=== PATIENT | female | born 1945 | race Two or more races ===

== ENCOUNTER 2019-04-20 11:50 | Emergency (ER) | payer MEDICAID, SELFPAY ==
--- NOTE | ~2019-04-20 | CT_ITS ---
EXAMINATION: CT brain wo con DATE: 04/20/2019 18:23 INDICATION: Dizziness TECHNIQUE: Computed tomography (CT) of the head was performed without intravenous contrast. Sagittal and coronal reconstructions were performed. The mA was adjusted according to patient size. Iterative reconstruction technique was employed. The dose-length product was 605.33 mGy-cm. COMPARISON: None FINDINGS: No acute intracranial hemorrhage, acute infarction or abnormal extra axial fluid collection. Ventricl es are normal and symmetric. No mass/mass effect. There is mild scattered white matter hypoattenuatio n consistent with chronic small vessel ischemic disease. Changes of bilateral intraocular lens replac ement. The orbits and mastoid air cells are normal. Opacification of the dependent half of the right sphenoid sinus consistent with likely combination of mucus and mucosal thickening. There are numerou s small lytic calvarial lesions along with 4 sclerotic calvarial lesions. IMPRESSION: 1. Mild scattered white matter hypoattenuation consistent with chronic small vessel ischemic disease. No acute intracranial process. 2. Multiple scattered small lytic calvarial lesions and 4 sclerotic calvarial lesions. Differential i ncludes metastatic disease, multiple myeloma, Paget's disease and spotty osteopenia with benign bone islands. Consider further evaluation with bone scan and SPEP/UPEP levels. Reviewed, dictated and finalized at location A. ER/WAITRESS INFORMAL IMPRESSION: 1. Mild scattered white matter hypoattenuation consistent with chronic small ve ssel ischemic disease. No acute intracranial process. 2. Multiple scattered small lytic calvarial lesions and 4 sclerotic calvarial l esions. Differential includes metastatic disease, multiple myeloma, Paget's dis ease and spotty osteopenia with benign bone islands. Consider further evaluatio n with bone scan and SPEP/UPEP levels.
--- NOTE | ~2019-04-20 | CT_ITS ---
EXAMINATION: CT abdomen pelvis w con EXAM DATE: 04/20/2019 14:34 INDICATION: Epigastric pain, nausea vomiting and diarrhea. Dizziness. TECHNIQUE: Spiral CT of the abdomen and pelvis was performed following intravenous injection of 100 m L Omnipaque 350. Axial, coronal and sagittal images were reviewed. The dose-length product (DLP) fo r this examination was 331.81 mGy-cm. The exposure was tailored according to patient size (auto mA e xposure control), and iterative reconstruction (ASIR) was used as additional dose reduction technique . There is no prior study for comparison. FINDINGS: The liver, spleen, adrenal glands and pancreas are unremarkable. There is focal region of gallbladder fundal wall thickening up to 4 mm, about 13 mm in diameter without any soft tissue projec tion into the gallbladder lumen. Could be adenomyomatosis but Follow-up CT or ultrasound recommended in 6 months to confirm stability. Portal and splenic veins are patent. Kidneys enhance symmetrically . There is no hydronephrosis. The uterus is unremarkable. The bladder is unremarkable. Soft tis brent nodule in right lower aspect of pelvis, could be obturator lymph node measuring about 1.0 x 1.1 c m. There is mild scattered arteriosclerotic disease. The appendix is normal. The stomach and small bowel are unremarkable. There is expected amount of c olonic stool. No free intraperitoneal gas. The heart is normal in size. There are no pericardial or pleural effusions. The lung bases are unremarkable. There are no osteoblastic or osteolytic les ions identified. IMPRESSION: 1. Small focal region gallbladder fundal smooth wall thickening, could be adenomyomatosis. 2. Small nodule soft tissue could be borderline sized right obturator lymph node. 3. No acute intra-abdominal findings. 4. Consider follow-up CT abdomen and pelvis in 6 months. Reviewed, dictated and finalized at location A. [employer] IMPRESSION: 1. Small focal region gallbladder fundal smooth wall thickening, could be renetta omyomatosis. 2. Small nodule soft tissue could be borderline sized right obturator lymph no de. 3. No acute intra-abdominal findings. 4. Consider follow-up CT abdomen and pelvis in 6 months.
[2019-04-20 11:55] VITALS: BP 180/83; PULSE 77; RESP 16; TEMP 37.1; O2SAT 98
[2019-04-20 12:27] LABS: Basophils Absolute Auto 0.1 K/mm3 (0.0-0.1); Basophils Percent Auto 0.6 % (0.2-1.2); Eosinophils Percent Auto 0.1 % (0-4.4); Hematocrit 40.5 % (37.0-47.0); Hemoglobin 13.4 g/dL (12.0-15.0); Immature Granulocyte Absolute 0.05 K/mm3 (0.00-0.031); Immature Granulocyte Percent A 0.6 % (0-0.5); Lymphocytes Absolute Auto 1.17 K/mm3 (0.9-3.2); Lymphocytes Percent Auto 14.4 % (18.3-44.2); Mean Corpuscular HGB Conc 33.1 g/dl (32-36); Mean Corpuscular Hemoglobin 28.9 pg (26-34); Mean Corpuscular Volume 87.5 fl (80-100); Mean Platelet Volume 10.3 fl (7.4-10.4); Monocytes Absolute Auto 0.4 K/mm3 (0.1-0.6); Monocytes Percent Auto 4.8 % (2.6-8.5); Neutrophils Absolute Auto 6.5 K/mm3 (1.3-6.7); Neutrophils Percent Auto 79.5 % (45.5-73.1); Platelet Count Result 251 k/mm3 (150-375); Red Blood Count 4.63 M/mm3 (4.2-5.4); Red Cell Distribution Width 12.5 % (11.5-14.5); White Blood Count 8.2 K/mm3 (4.5-10.0)
[2019-04-20 12:41] LABS: Alanine Aminotransferase 35 U/L (4-35); Albumin Level 4.8 g/dL (3.5-5.1); Alkaline Phosphatase 82 U/L (38-126); Aspartate Amino Transferase 34 U/L (14-36); Bilirubin,Total 0.5 mg/dL (0.2-1.3); Blood Urea Nitrogen 14 mg/dL (7-17); Calcium 9.7 mg/dL (8.4-10.2); Carbon Dioxide 26 mmol/L (22-30); Chloride 102 mmol/L (98-107); Estimated CRCL calculation 70 ml/min; Estimated Glomerular Filt Rate > 60; Glucose 141 mg/dL (65-105); Lipase 54 U/L (23-300); Potassium 3.8 mmol/L (3.4-5.0); Sodium 139 mmol/L (137-145)
--- NOTE | 2019-04-20 13:21 | ED.NAVMDI ---
HPI - Nausea/Vomiting/Diarrhea General Chief complaint: Nausea/Vomiting/Diarrhea Stated complaint: vomiting, nausea, dizzy, headache Time Seen by Provider: 04/20/19 13:18 Source: topology professor (daughter at bedside) Mode of arrival: ambulatory Limitations: language barrier and other (poor historian) History of Present Illness HPI Narrative: A 73 y/o female pt presents to the ED, with c/o N/V since last night at 2200. Pt's family translating at bedside states that, pt has been vomiting since last night and is dizzy and nauseous. Pt is unable to keep food down and states that when she throws up she feels better. Pt notes some chest discomfort, an itchy throat, fatigue and chills, but otherwise denies SOB, fever, cough, diarrhea, ABD pain, or sweats. Pt has a history of heart problems but is unsure of her diagnosis. A complete HPI is limited d/t pt being a poor historian. MD elicited complaint: nausea and vomiting Onset (ago): hour(s) (15) Associated nausea: Yes Associated abdominal pain: No Relieving factors: vomiting Associated symptoms: nausea/vomiting, fatigue and other (chills, chest discomfort, itchy throat, dizziness) Related Data Allergies Allergy/AdvReac Type Severity Reaction Status Date / Time No Known Allergies Allergy Verified 04/20/19 13:42 Review of Systems Review of Systems: Narrative: A complete HPI is limited d/t pt being a poor historian. Constitutional: Constitutional: Reports chills, Denies excessive sweating, Reports fatigue and Denies fever(s) ENT: Reports other (itchy throat) Cardiovascular: Cardiovascular: Reports chest pain (discomfort) Respiratory: Respiratory: Denies cough and Denies dyspnea Gastrointestinal: Gastrointestinal: Denies abdominal pain, Denies diarrhea, Reports nausea and Reports vomiting Neurologic: Reports dizziness PMFSH Social History Social History (Updated 04/20/19 @ 15:00 by Tonja Angela, [facility]) Smoking status: Never smoker Comments A PMFSHx is limited d/t pt being a poor historian. Exam Const: General: cooperative, no acute distress and alert Nutritional Appearance: well nourished Orientation/consciousness: patient oriented x3 Limitations: no limitations HENMT: Mouth: Yes lip normal and Yes dry mucous membranes (mild) Resp: Effort & Inspection: normal respiratory effort Auscultation: clear to auscultation bilaterally Cardio: Rate: regular rate Rhythm: regular rhythm Heart sounds: no murmurs Peripheral pulses: dorsalis pedis present bilateral GI: GI Palp: Yes Soft to palpation and No Tenderness to palpation present (GI) Auscultation: normal bowel sounds Back/Spine/Pelvis: Back: no CVA tenderness Skin: General skin exam: normal color Neuro: General: patient oriented x3 Cognition (Neuro): normal cognition Speech: normal speech Extrem: General: normal to inspection, full ROM and no clubbing, cyanosis or edema Psych: Mental Status: mental status grossly normal Affect: normal affect Attitude: cooperative Course Course Emergency Course: Patient presents with nausea, vomiting, symptoms of dehydration, and overall not feeling well. Patient with benign abdominal exam and no acute abnormalities noted on CT scan. Patient and family advised of abnormality of the gallbladder that will need outpatient follow-up. No acute abnormalities noted on EKG and troponin is not elevated. Patient will be discharged home with Zofran and is feeling better after receiving Zofran IV fluids in the emergency department. Advised importance of return to the emergency department for any worsening symptoms or problems and to follow-up with her primary care physician later this week for further care. Vital Signs Vital signs: Vital Signs Temperature 98.8 F 04/20/19 11:55 Pulse Rate 77 04/20/19 11:55 Respiratory Rate 16 04/20/19 11:55 Blood Pressure 180/83 H 04/20/19 11:55 Pulse Oximetry 98 04/20/19 11:55 Temperature 98.8 F 04/20/19 11:55 Pulse Rate 68
--- NOTE | 2019-04-20 13:32 | ECG_ITS ---
Measurements Intervals [place] Rate: 82 P: 55 [place]: 192 QRS: 69 QRSD: 94 T: 46 QT: 408 QTc: 477 Interpretive Statements SINUS RHYTHM POSSIBLE LEFT ATRIAL ENLARGEMENT BASELINE WANDER- I, II, AVR, AVL, AVF BORDERLINE ECG Electronically Signed On 04-20-2019 14:53:55 CONCRETE CONVEYOR OPERATOR by Porfirio Thomas D.O.
[2019-04-20] MEDS: LACTATED RINGERS 1,000 ML 999 ML IV CONT ×2 (13:59→17:05)
[2019-04-20] MEDS: ONDANSETRON INJ 4 MG/2 ML VIAL IV PUSH ×2 (13:59→17:05)
[2019-04-20 14:17] VITALS: BP 175/85; BP 178/99; BP 192/99; PULSE 66; PULSE 68; PULSE 69
[2019-04-20 15:09] LABS: Add Urine Microscopic? NO; Appearance Urine Clear (Clear); Bilirubin Urine Negative (Negative); Blood Urine Negative (Negative); Color Urine Straw (Yellow); Glucose Urine UA Negative (Negative); Ketones Urine Negative (Negative); Leukocyte Esterase Ur Negative LEU/UL (Negative); Nitrate Urine Negative (Negative); Protein Urine Negative (Negative); Urobilinogen Urine Negative mg/dL (<2.0)
[2019-04-20 15:13] LABS: Specific Grav Ur 1.036 (1.001-1.035)
[2019-04-20 15:29] LABS: Troponin I < 0.012 ng/mL (0.000-0.034)
--- NOTE | 2019-04-20 16:36 | PC.NURSE ---
upon discharging pt. instructions reviewed. iv removed. pt up and dressed. went to get wheelchair. upon my return pt vomiting in bathroom. c/o increased dizziness. stumbling back to room. edp informed. discharge unsuccessful
[2019-04-20] MEDS: MECLIZINE HCL 25 MG TABLET PO (17:05)
[2019-04-20 19:46] VITALS: BP 168/89; PULSE 65; RESP 16; O2SAT 100
--- NOTE | 2019-04-20 20:28 | ED.NAVMDI ---
HPI - Nausea/Vomiting/Diarrhea General Chief complaint: Nausea/Vomiting/Diarrhea Stated complaint: vomiting, nausea, dizzy, headache Time Seen by Provider: 04/20/19 13:18 Source: periodontist (daughter at bedside) Mode of arrival: ambulatory Limitations: language barrier and other (poor historian) History of Present Illness Relieving factors: vomiting Associated symptoms: nausea/vomiting, fatigue and other (chills, chest discomfort, itchy throat, dizziness) Related Data Allergies Allergy/AdvReac Type Severity Reaction Status Date / Time No Known Allergies Allergy Verified 04/20/19 13:42 [facility] Social History Social History (Updated 04/20/19 @ 15:00 by Tonja Angela, [employer]) Smoking status: Never smoker Course Reevaluation(s) Reevaluation #1: Patient feeling much better, currently denying any headache, slightly nauseated. Date: 04/20/19 Time: 20:29 Consultations Consultation #1: Dr. Jean-Baptiste. Recommends: Serum electrophoresis with immunofixation, quantitative immunoglobulin level, free light chain study. Outpatient follow-up. Date: 04/20/19 Time: 20:30 Vital Signs Vital signs: Vital Signs Temperature 37.1 C 04/20/19 11:55 Pulse Rate 77 04/20/19 11:55 Respiratory Rate 16 04/20/19 11:55 Blood Pressure 180/83 H 04/20/19 11:55 Pulse Oximetry 98 04/20/19 11:55 Temperature 37.1 C 04/20/19 11:55 Pulse Rate 68 04/20/19 14:17 Respiratory Rate 16 04/20/19 11:55 Blood Pressure 192/99 H 04/20/19 14:17 Pulse Oximetry 98 04/20/19 11:55 MDM - Nausea/Vomiting/Diarrhea Lab Data Result diagrams: 04/20/19 12:08 04/20/19 12:08 Labs: Lab Results 04/20/19 04/20/19 04/20/19 Range/Units 12:08 12:08 12:08 WBC 8.2 (4.5-10.0) K/mm3 RBC 4.63 (4.2-5.4) M/mm3 Hgb 13.4 (12.0-15.0) g/dL Hct 40.5 (37.0-47.0) % MCV 87.5 (80-100) fl MCH 28.9 (26-34) pg MCHC 33.1 (32-36) g/dl RDW 12.5 (11.5-14.5) % Plt Count 251 (150-375) k/mm3 MPV 10.3 (7.4-10.4) fl Immature Gran % (Auto) 0.6 H (0-0.5) % Neut % (Auto) 79.5 H (45.5-73.1) % Lymph % (Auto) 14.4 L (18.3-44.2) % [place] % (Auto) 4.8 (2.6-8.5) % Eos % (Auto) 0.1 (0-4.4) % Baso % (Auto) 0.6 (0.2-1.2) % Lymph # (Auto) 1.17 (0.9-3.2) K/mm3 [place] # (Auto) 0.4 (0.1-0.6) K/mm3 Eos # (Auto) 0.0 (0-0.3) K/mm3 Baso # (Auto) 0.1 (0.0-0.1) K/mm3 Abs Immat Gran (auto) 0.05 H (0.00-0.031) K/mm3 Absolute Neuts (auto) 6.5 (1.3-6.7) K/mm3 Absolute Nucleated RBC 0.0 (0.0-0.012) K/mm3 Nucleated RBC % 0.0 (0.0-0.2) % Sodium 139 (137-145) mmol/L Potassium 3.8 (3.4-5.0) mmol/L Chloride 102 (98-107) mmol/L Carbon Dioxide 26 (22-30) mmol/L BUN 14 (7-17) mg/dL Creatinine 0.50 L (0.7-1.0) mg/dL Estim Creat Clear Calc 70 ml/min Estimated GFR > 60 (59 - ) Glucose 141 H (65-105) mg/dL Calcium 9.7 (8.4-10.2) mg/dL Total Bilirubin 0.5 (0.2-1.3) mg/dL AST 34 (14-36) U/L ALT 35 (4-35) U/L Alkaline Phosphatase 82 (38-126) U/L Troponin I < 0.012 (0.000-0.034) ng/mL Total Protein 9.0 H (6.3-8.2) g/dL Albumin 4.8 (3.5-5.1) g/dL Lipase 54 (23-300) U/L Urine Color (Yellow) Urine Appearance (Clear) Urine pH (5.0-9.0) Ur Specific [place] (1.001-1.035) Urine Protein (Negative) mg/dL Urine Glucose (UA) (Negative) mg/dL Urine Ketones (Negative) mg/dL Ur Blood (Man) (Negative) Urine Nitrate (Negative) Urine Bilirubin (Negative) Urine Urobilinogen (<2.0) mg/dL Leukocyte Esterase Rfl (Negative) GULSHAN/UL 04/20/19 Range/Units 14:55 WBC (4.5-10.0) K/mm3 RBC (4.2-5.4) M/mm3 Hgb (12.0-15.0) g/dL Hct (37.0-47.0) % MCV (80-100) fl MCH (26-34) pg MCHC (32-36) g/dl RDW (11.5-14.5) % Plt Count (150-375) k/mm3 MPV (7.4-10.4) fl Immature Gran % (Auto) (0-0.5) % Semaj
--- NOTE | 2019-04-20 21:02 | PC.NURSE ---
Patient reports a little dizziness while ambulating. PO challenging patient at this time.
[2019-04-20 21:31] VITALS: BP 165/92; PULSE 71; RESP 20; O2SAT 100
[2019-04-20 22:38] LABS: Immunoglobulin A 186 mg/dL (70-400); Immunoglobulin G 1361 mg/dL (700-1600); Immunoglobulin M 68 mg/dL (40-230)
--- NOTE | 2019-04-20 22:45 | PC.NURSE ---
Patient requesting to speak to MOSES Judge before discharge. MOSES Judge notified
[2019-04-20 23:23] VITALS: BP 173/98; PULSE 65; RESP 18; TEMP 36.7; O2SAT 100
[2019-04-23 22:32] LABS: Albumin 4.1 g/dL (3.8-4.8); Alpha 1 Globulin 0.3 g/dL (0.2-0.3); Alpha 2 Globulin 0.6 g/dL (0.5-0.9); Beta 1 Globulin 0.4 g/dL (0.4-0.6); Gamma Globulin 1.2 g/dL (0.8-1.7); Protein, Total 6.9 g/dL (6.1-8.1)
[2019-04-24 00:29] LABS: Kappa\\Lambda Light Chains 1.13 (0.26-1.65); Lambda Light Chain 17.1 mg/L (5.7-26.3)
--- NOTE | 2019-05-03 07:33 | ED.GENADULT ---
HPI - General Adult General Chief complaint: Nausea/Vomiting/Diarrhea Stated complaint: vomiting, nausea, dizzy, headache Time Seen by Provider: 04/20/19 13:18 Source: editor news (daughter at bedside) Mode of arrival: ambulatory Limitations: language barrier and other (poor historian) Related Data Allergies Allergy/AdvReac Type Severity Reaction Status Date / Time No Known Allergies Allergy Verified 04/20/19 13:42 [facility] Social History Social History Smoking status: Never smoker Exam Narrative: Exam Narrative: General appearance: Well-developed, well-nourished Skin: Normal color Head: Normocephalic, nontraumatic Eyes: Clear conjunctiva ENT: Oropharynx normal, ears normal, nose normal Neck: Supple, nontender Chest and respiratory: Airway patent, no respiratory distress, no accessory muscle use Heart: Regular rate/rhythm Abdomen: Soft, mild diffuse tenderness , no organomegaly, quiet bowel sounds Vascular: Normal peripheral pulses, normal capillary refill. Musculoskeletal: Normal range of motion, nontender back Neurologic: Alert and oriented ?3, [employer]URB[employer]SEMBLER is normal as tested, no gross motor deficit Course Course Emergency Course: Improving Vital Signs Vital signs: Vital Signs Temperature 37.1 C 04/20/19 11:55 Pulse Rate 77 04/20/19 11:55 Respiratory Rate 16 04/20/19 11:55 Blood Pressure 180/83 H 04/20/19 11:55 Pulse Oximetry 98 04/20/19 11:55 Temperature 36.7 C 04/20/19 23:23 Pulse Rate 65 04/20/19 23:23 Respiratory Rate 18 04/20/19 23:23 Blood Pressure 173/98 H 04/20/19 23:23 Pulse Oximetry 100 04/20/19 23:23 Medical Decision Making MDM Narrative Medical decision making narrative: Patient was signed out to me by Dr. Kathleen aSlas, waiting for labs results. Vital Signs Vital Signs: Vital Signs Temperature 37.1 C 04/20/19 11:55 Pulse Rate 77 04/20/19 11:55 Respiratory Rate 16 04/20/19 11:55 Blood Pressure 180/83 H 04/20/19 11:55 Pulse Oximetry 98 04/20/19 11:55 Temperature 36.7 C 04/20/19 23:23 Pulse Rate 65 04/20/19 23:23 Respiratory Rate 18 04/20/19 23:23 Blood Pressure 173/98 H 04/20/19 23:23 Pulse Oximetry 100 04/20/19 23:23 Lab Data Result diagrams: 04/20/19 12:08 04/20/19 12:08 Labs: Lab Results 04/20/19 04/20/19 04/20/19 Range/Units 12:08 12:08 12:08 WBC 8.2 (4.5-10.0) K/mm3 RBC 4.63 (4.2-5.4) M/mm3 Hgb 13.4 (12.0-15.0) g/dL Hct 40.5 (37.0-47.0) % MCV 87.5 (80-100) fl MCH 28.9 (26-34) pg MCHC 33.1 (32-36) g/dl RDW 12.5 (11.5-14.5) % Plt Count 251 (150-375) k/mm3 MPV 10.3 (7.4-10.4) fl Immature Gran % (Auto) 0.6 H (0-0.5) % Neut % (Auto) 79.5 H (45.5-73.1) % Lymph % (Auto) 14.4 L (18.3-44.2) % [place] % (Auto) 4.8 (2.6-8.5) % Eos % (Auto) 0.1 (0-4.4) % Baso % (Auto) 0.6 (0.2-1.2) % Lymph # (Auto) 1.17 (0.9-3.2) K/mm3 [place] # (Auto) 0.4 (0.1-0.6) K/mm3 Eos # (Auto) 0.0 (0-0.3) K/mm3 Baso # (Auto) 0.1 (0.0-0.1) K/mm3 Abs Immat Gran (auto) 0.05 H (0.00-0.031) K/mm3 Absolute Neuts (auto) 6.5 (1.3-6.7) K/mm3 Absolute Nucleated RBC 0.0 (0.0-0.012) K/mm3 Nucleated RBC % 0.0 (0.0-0.2) % Sodium 139 (137-145) mmol/L Potassium 3.8 (3.4-5.0) mmol/L Chloride 102 (98-107) mmol/L Carbon Dioxide 26 (22-30) mmol/L BUN 14 (7-17) mg/dL Creatinine 0.50 L (0.7-1.0) mg/dL Estim Creat Clear Calc 70 ml/min Estimated GFR > 60 (59 - ) Glucose 141 H (65-105) mg/dL Calcium 9.7 (8.4-10.2) mg/dL Total Bilirubin 0.5 (0
== END 2019-04-20 23:30 | disposition home or self-care (01) ==
PROVIDERS: Emergency Medicine; Emergency Provider Emergency Medicine
DX: E86.0 Dehydration (principal); R11.2 Nausea with vomiting, unspecified; R94.31 Abnormal electrocardiogram [ECG] [EKG]; R93.2 Abnormal findings on diagnostic imaging of liver and biliary tract; R93.5 Abnormal findings on diagnostic imaging of other abdominal regions, including retroperitoneum
CPT/HCPCS: 36415; 51701; 70450; 74177; 80053; 81003; 82784; 83690; 83883; 84155; 84165; 84484; 85025; 86334; 87804; 93005; 96361; 96374; 96376; 99284; A9270; J2405; J7120; Q9967